=== PATIENT | male | born 1985 | race African-American/Black ===

== ENCOUNTER 2016-10-28 13:21 | Emergency (ER) | payer OTHER ==
--- NOTE | ~2016-10-28 | ER ---
PATIENT'S NAME: SERENITY RIVERO [facility] AGE: 30 Y [address] ROOM: [place] [id number] LOCATION: [facility] ADMIT DATE: 10/28/2016 ER/Outpatient Report DISCHARGE DATE: 10/28/2016 FAMILY PHYSICIAN: PHYSICIAN, NO ATTENDING PHYSICIAN: Tiffany Hancock TIME SEEN: 1935 hours. CHIEF COMPLAINT: Left flank pain, penile discharge. 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 He said within the last month he was seen in the emergency room with left flank pain. He had a scan at that time and was told as normal. The patient recently has had some clear penile discharge. The patient's last sexual encounter was a month ago. He states he has had no previous STDs. ALLERGIES: NONE. HOME MEDICATIONS: None. SURGERIES: None. SOCIAL HISTORY: 2-3 cigarettes a day. Denies alcohol use. He is sexually active. REVIEW OF SYSTEMS: GENERAL: No fevers or chills. HEAD AND EENT: No recent sore throat. RESPIRATORY: No cough or shortness of breath. GASTROINTESTINAL: No weight loss. No change in bowel habits. GENITOURINARY: Some left flank pain, usually worse with movement. GENITOURINARY: Circumcised. Had a clear discharge from his penis. Denies any scrotal pain. OBJECTIVE FINDINGS: VITAL SIGNS: Blood pressure 116/69, temperature 97.5, his respiratory rate 16, pulse 97, and O2 saturations 98%. GENERAL APPEARANCE: Black male. He is oriented, well nourished. LUNGS: Peripherally are clear bilaterally. PATIENT'S NAME: SERENITY RIVERO [facility] AGE: 30 Y [address] ROOM: [place], [place] [address] LOCATION: [facility] ADMIT DATE: 10/28/2016 ER/Outpatient Report DISCHARGE DATE: 10/28/2016 FAMILY PHYSICIAN: PHYSICIAN, NO ATTENDING PHYSICIAN: Tiffany Hancock ABDOMEN: Soft. No organomegaly. He did have some slight left CVA tenderness. GENITALIA: Circumcised. Testes nontender, appeared normal. There was presence of a scanty discharge. LABORATORY DATA: CBC and CMS unremarkable. His urine did show test positive for chlamydia, negative GC. ASSESSMENT: 1. Urethritis with positive chlamydia. 2. Left flank pain, probable muscle related, with previous negative CT scan. PLAN: Azithromycin 1 g p.o. Recommended to use ibuprofen 600 mg every 6 hours for his flank pain. Recommend he follow up with his family doctor when he gets home. Handout was given on information concerning his chlamydia infection. MCKENZIE LOPEZ FOR MD TARA GREEN/shantel /[id number] d: 10/28/161911 t: 11/05/16 1210, OUTPATIENT REPORT
[2016-10-28 13:47] LABS: BILIRUBIN URINE NEGATIVE (NEGATIVE); BLOOD URINE NEGATIVE /UL (NEGATIVE); COLOR URINE COLORLESS (YELLOW); GLUCOSE URINE NEGATIVE (NEGATIVE); KETONE URINE NEGATIVE (NEGATIVE); LEUKOCYTES URINE 100 /UL (NEGATIVE); NITRITE URINE NEGATIVE (NEGATIVE); PROTEIN URINE NEGATIVE (NEGATIVE); TURBIDITY URINE CLEAR (CLEAR); UROBILINOGEN URINE NORMAL (NORMAL)
[2016-10-28 13:53] LABS: BASOPHIL % 0.2 %; EOSINOPHIL # 0.1 K/uL (0.0-0.5); HEMATOCRIT 43.7 % (37.0-53.0); HEMOGLOBIN 15.1 g/dL (12.0-17.0); IMMATURE GRANULOCYTE % 0.2 %; LYMPHOCYTE # 2.2 K/uL (0.8-4.0); LYMPHOCYTE % 44.5 %; MCH 30.8 pg (27.0-34.0); MCHC 34.6 gm/dL (32.0-36.5); MCV 89.2 fl (83.0-98.0); MONOCYTE # 0.4 K/uL (0.0-1.0); MONOCYTE % 7.8 %; NEUTROPHIL # (ANC) 2.3 K/uL (1.4-9.0); NEUTROPHIL % 45.3 %; NRBC % 0 /100WBC (0-0.00); PLATELET COUNT 153 K/uL (150-450); RDW-CV 12.3 % (11.9-14.6)
[2016-10-28 13:58] LABS: BACTERIA URINE RARE (NEGATIVE); EPITHELIAL URINE 0-2 #/HPF (NEGATIVE); RBC URINE 0-2 #/HPF (NEGATIVE)
[2016-10-28 14:18] LABS: ALBUMIN 4.4 gm/dL (3.5-5.0); ALK PHOS 64 IU/L (33-138); ALT 21 IU/L (12-78); ANION GAP 9.8 (10.0-19.0); AST 16 IU/L (10-40); BLOOD UREA NITROGEN 7 mg/dL (6-24); CALCIUM 8.8 mg/dL (8.5-10.5); CHLORIDE 107 mMol/L (96-110); CO2 26 mMol/L (22-32); CREATININE 1.1 mg/dL (0.6-1.3); ESTIMATED GFR (MDRD EQUATION) > 60; POTASSIUM 3.8 mMol/L (3.7-5.1); SODIUM 139 mMol/L (135-145); TOTAL BILIRUBIN 0.4 mg/dL (0.0-1.5); TOTAL PROTEIN 7.9 g/dL (6.0-8.4)
== END 2016-10-28 16:06 | disposition disaster alternative care site (69) ==
LOC: GMED 13:21
PROVIDERS: Physician Assistant Medical
DX: A56.01 Chlamydial cystitis and urethritis (principal); F17.210 Nicotine dependence, cigarettes, uncomplicated